=== PATIENT | female | born 1945 | race Caucasian/White ===

== ENCOUNTER → 2020-03-30 | Outpatient (CLI) | payer MEDICARE, OTHER | END | disposition home or self-care (01) | LOC: LAB SHORT 07:11 | DX: D11.0 Benign neoplasm of parotid gland (principal) | CPT/HCPCS: 88173 ==

== ENCOUNTER 2024-11-20 11:20 | Emergency (ER) | payer MEDICARE, OTHER ==
[~2024-11-20] VITALS: Ht 165.1 cm; Wt 72.6 kg
[2024-11-20 12:05] LABS: BASOPHILS ABSOLUTE AUTO 0.07 K/mm3 (0.00-0.23); BASOPHILS PERCENT AUTO 1 % (0-2); EOSINOPHILS PERCENT AUTO 0 % (0-6); Hematocrit 43.5 % (33.0-51.0); Hemoglobin 14.4 g/dL (11.5-16.0); IMMATURE GRAN ABSOLUTE AUTO 0.01 K/mm3 (0.00-0.10); IMMATURE GRAN PERCENT AUTO 0 % (0-1); LYMPHOCYTES ABSOLUTE AUTO 2.17 K/mm3 (0.84-5.20); LYMPHOCYTES PERCENT AUTO 29 % (21-46); MONOCYTES ABSOLUTE AUTO 0.51 K/mm3 (0.16-1.47); MONOCYTES PERCENT AUTO 7 % (4-13); Mean Corpuscular HGB 30.6 pg (26.0-34.0); Mean Corpuscular HGB Conc 33.1 g/dL (31.5-36.5); Mean Corpuscular Volume 92 fL (80-100); Mean Platelet Volume 8.9 fL (9.1-12.4); NEUTROPHILS ABSOLUTE AUTO 4.78 K/mm3 (1.96-9.15); NEUTROPHILS PERCENT AUTO 63 % (41-73); Platelet Count 298 K/mm3 (150-400); RDW Coefficient Variation 13.1 % (11.7-14.2); RDW Standard Deviation 44.7 fL (35.1-46.3); Red Blood Cell Count 4.71 M/mm3 (3.80-5.20); White Blood Cell Count 7.54 K/mm3 (4.00-11.30)
[2024-11-20 12:25] LABS: Alanine Aminotransfer (ALT/SGP 15 U/L (12-78); Albumin, Blood 3.4 g/dL (3.4-5.0); Albumin/Globulin Ratio 0.8 (0.8-1.8); Alk Phos 70 U/L (50-136); Anion Gap 10 mmol/L (3-11); Aspartate Aminotrans (AST/SGOT 15 U/L (12-37); Bilirubin, Total 0.3 mg/dL (0.1-1.0); Blood Urea Nitrogen 11 mg/dL (8-24); Bun/Creatinine Ratio 20.5 (12.0-20.0); CHOL/HDL RATIO 3.9; CO2, Blood 27 mmol/L (21-32); Calcium, Blood 9.2 mg/dL (8.5-10.1); Chloride, Blood 100 mmol/L (98-108); Cholesterol 239 mg/dL (50-200); Creatinine, Blood 0.54 mg/dL (0.40-1.00); Globulin, Blood 4.3 g/dL (2.2-4.0); Glomerular Filtration Rate 93 (60-); Glucose, Blood 123 mg/dL (70-99); HDL Cholesterol 61 mg/dL (>39); LDL/HDL RATIO 2.4; Low Density Lipoprotein Chol 145 mg/dL (0-110); Potassium, Blood 4.1 mmol/L (3.5-5.5); Sodium, Blood 133 mmol/L (136-145); Total Protein, Blood 7.7 g/dL (6.4-8.2); Triglycerides 165 mg/dL (30-160); Very Low Density Lipoprot Chol 33 mg/dL (6-32)
[2024-11-20] MEDS ORDERED: EUTHYROX50 MCG PO (12:30)
[2024-11-20] MEDS ORDERED: Atorvastatin 10 MG Tab PO ONE (12:50)
[2024-11-20] MEDS ORDERED: Aspirin 325 MG Tab PO ONE (12:50)
[2024-11-20] MEDS ORDERED: Clopidogrel Bisulfate 75 MG Tab PO ONE (12:50)
[2024-11-20] MEDS ORDERED: ATOR40TA PO (13:42)
[2024-11-20] MEDS ORDERED: CLOP75 PO (13:42)
[2024-11-20] MEDS ORDERED: Aspirin EC81 MG PO (13:42)
[2024-11-20 13:45] VITALS: BP 136/90
[2024-11-20] MEDS ORDERED: Adenosine 3 MG/ML 2 ML Vial ONE (15:26)
== END 2024-11-20 13:54 | disposition home or self-care (01) ==
LOC: ER 11:20
PROVIDERS: Emergency Medicine
DX: I63.9 Cerebral infarction, unspecified (principal); G81.94 Hemiplegia, unspecified affecting left nondominant side; H53.2 Diplopia; H49.10 Fourth [trochlear] nerve palsy, unspecified eye; E03.9 Hypothyroidism, unspecified; Z79.890 Hormone replacement therapy
CPT/HCPCS: 70450; 80053; 80061; 83036; 84443; 85025; 93005; 93010; 93880; 99285-25; A9270; J0153